=== PATIENT | female | born 1965 | race Caucasian/White ===

== ENCOUNTER 2016-06-28 14:50 | Emergency (ER) | payer MEDICAID ==
[~2016-06-28] VITALS: Ht 162.6 cm; Wt 49.0 kg
--- NOTE | 2016-06-28 14:55 | NUR ---
Pt bib , patient is methadone withdrawal. Placed on monitor. vss. awaiting md order
[2016-06-28] MEDS ORDERED: HYDROMORPHONE 1 MG/1 ML DISP.SYRIN ONE ×2 (15:11→15:38)
[2016-06-28] MEDS ORDERED: IV SET PRIMARY PUMP SET 1 EA INFUS.SET MC ONE (15:11)
[2016-06-28] MEDS ORDERED: ONDANSETRON HCL/PF 4 MG/2 ML VIAL ONE (15:11)
[2016-06-28] MEDS ORDERED: IV NS 0.9% 1,000 ML ONE (15:11)
--- NOTE | 2016-06-28 15:26 | NUR ---
RAC #20 PIV ACCESS. BLOOD SAMPLE COLLECTED SENT TO LAB
[2016-06-28 15:29] LABS: BASOPHILS % (AUTO) 0.4 % (0.0-2.0); EOSINOPHILS % (AUTO) 0.2 % (0.0-6.0); HEMATOCRIT 27 % (33-45); HEMOGLOBIN 7.9 g/dL (11.5-14.8); LYMPHOCYTES # (AUTO) 0.7 /CMM (0.8-4.8); LYMPHOCYTES % (AUTO) 9.2 % (20.0-44.0); MEAN CORPUSCULAR HEMOGLOBIN 19 PG (26.0-33.0); MEAN CORPUSCULAR HGB CONC 29 g/dl (31.0-36.0); MEAN CORPUSCULAR VOLUME 66 fL (82-100); MONOCYTES # (AUTO) 0.2 /CMM (0.1-1.30); MONOCYTES % (AUTO) 2.2 % (2.0-12.0); NEUTROPHILS # (AUTO) 6.6 /CMM (1.8-8.9); PLATELET COUNT (AUTO) 337 /CMM (150-450); RED BLOOD CELL COUNT(AUTO) 4.13 MIL/uL (4.0-5.2); WHITE BLOOD COUNT (AUTO) 7.5 K/uL (4.3-11.0)
[2016-06-28] MEDS ORDERED: IV NS 0.9% 1,000 ML BAG IV ONE (15:30)
[2016-06-28] MEDS ORDERED: ONDANSETRON HCL/PF 4 MG/2 ML VIAL IVP ONE (15:30)
[2016-06-28] MEDS ORDERED: HYDROMORPHONE INJ 2 MG/ML DISP.SYRIN IV ONE (15:30)
[2016-06-28 15:35] LABS: CALCIUM, SERUM 9.2 mg/dL (8.5-10.1); CREATININE 0.7 mg/dL (0.6-1.3); POTASSIUM 3.9 mmol/L (3.5-5.1)
[2016-06-28] MEDS ORDERED: METOCLOPRAMIDE HCL 10 MG/2 ML VIAL ONE (15:38)
[2016-06-28 15:41] LABS: ALBUMIN 4.8 g/dL (3.4-5.0); BILIRUBIN,DIRECT 0.1 mg/dL (0.0-0.2); BILIRUBIN,TOTAL 0.5 mg/dL (0.2-1.0); TOTAL PROTEIN, SERUM 8.3 g/dL (6.4-8.2)
[2016-06-28] MEDS ORDERED: HYDROMORPHONE 1 MG/1 ML DISP.SYRIN IV ONE (16:00)
[2016-06-28] MEDS ORDERED: METOCLOPRAMIDE HCL 10 MG/2 ML VIAL IV ONE (16:00)
[2016-06-28 16:43] VITALS: BP 123/85
--- NOTE | 2016-06-28 16:44 | NUR ---
IV removed. Catheter intact and site benign. Pressure and 4x4 applied to site. No bleeding noted.
--- NOTE | 2016-06-28 16:45 | NUR ---
Patient discharged to home in stable condition. Written and verbal after care instructions given. Patient verbalizes understanding of instruction.
== END 2016-06-28 16:44 | disposition home or self-care (01) ==
LOC: ER 14:52
DX: R11.2 Nausea with vomiting, unspecified (principal); F32.9 Major depressive disorder, single episode, unspecified; F41.9 Anxiety disorder, unspecified; Z88.0 Allergy status to penicillin
CPT/HCPCS: 36415; 80048; 80076; 83690; 85025; 96361; 96374; 96375; 99284; A4606; J1170 ×2; J2405; J2765; J7030; Z7610

== ENCOUNTER 2016-12-09 15:00 | Emergency (ER) | payer MEDICAID ==
[~2016-12-09] VITALS: Ht 162.6 cm; Wt 44.5 kg
[2016-12-09 15:00] VITALS: BP 118/86
--- NOTE | 2016-12-09 16:34 | NUR ---
ear flush - done left ear by EMT
--- NOTE | 2016-12-09 16:34 | NUR ---
Patient discharged to home in stable condition. Written and verbal after care instructions given. Patient verbalizes understanding of instruction.
== END 2016-12-09 16:37 | disposition home or self-care (01) ==
LOC: ER 15:03
DX: H61.21 Impacted cerumen, right ear (principal); F41.9 Anxiety disorder, unspecified; F32.9 Major depressive disorder, single episode, unspecified; Z88.0 Allergy status to penicillin
CPT/HCPCS: 69209; 99282; A4606; Z7610

== ENCOUNTER 2018-03-13 05:05 | Emergency (ER) | payer MEDICAID ==
[~2018-03-13] VITALS: Ht 162.6 cm; Wt 54.0 kg
[2018-03-13 05:08] VITALS: BP 120/77
[2018-03-13] MEDS ORDERED: LIDOCAINE VISCOUS 2% UD 15 ML UDC MM ONE (05:30)
[2018-03-13] MEDS ORDERED: LIDOCAINE VISCOUS 2% UD 15 ML UDC ONE (05:33)
== END 2018-03-13 05:38 | disposition home or self-care (01) ==
LOC: ER 05:11
DX: J04.0 Acute laryngitis (principal); F41.9 Anxiety disorder, unspecified; F32.9 Major depressive disorder, single episode, unspecified; Z88.0 Allergy status to penicillin
CPT/HCPCS: 99283; A4606; Z7610

== ENCOUNTER 2018-05-07 16:36 | Emergency (ER) | payer MEDICAID ==
[~2018-05-07] VITALS: Ht 165.1 cm; Wt 59.0 kg
[2018-05-07] MEDS ORDERED: TRAZODONE TAB 50MG (16:45)
[2018-05-07] MEDS ORDERED: OXYCOD/APAP TAB 5-325MG (16:45)
[2018-05-07] MEDS ORDERED: ALPRAZOLAM TAB 1MG (16:45)
--- NOTE | 2018-05-07 16:54 | NUR ---
PT BIB C/O Abdominal pain and whole body pain s/p unable to refill perscription, PT IS AAOX4, NOT IN RESPIRATORY DISTRESS, V/S STABLE, KEPT RESTED AND COMFORTABLE.
--- NOTE | 2018-05-07 16:59 | NUR ---
SEEN AND EXAMINED BY TREVOR RESENDIZ
[2018-05-07] MEDS ORDERED: HYDROMORPHONE INJ 0.5 MG/0.5 ML SYRINGE IV ONE (17:00)
[2018-05-07] MEDS ORDERED: IV NS 0.9% 1,000 ML BAG IV ONE (17:00)
[2018-05-07] MEDS ORDERED: ONDANSETRON HCL/PF 4 MG/2 ML VIAL IV ONE ×2 (17:00→18:30)
--- NOTE | 2018-05-07 17:00 | NUR ---
IV LINE ESTABLISHED, LABS DRAWNED AND SENT TO LAB.
[2018-05-07] MEDS ORDERED: HYDROMORPHONE 1 MG/1 ML DISP.SYRIN ONE ×2 (17:09→18:07)
[2018-05-07] MEDS ORDERED: ONDANSETRON HCL/PF 4 MG/2 ML VIAL ONE ×2 (17:09→18:07)
[2018-05-07 17:10] LABS: BASOPHILS % (AUTO) 0.5 % (0.0-2.0); EOSINOPHILS % (AUTO) 0.2 % (0.0-6.0); HEMATOCRIT 41 % (33-45); HEMOGLOBIN 13.5 g/dL (11.5-14.8); LYMPHOCYTES # (AUTO) 0.8 /CMM (0.8-4.8); LYMPHOCYTES % (AUTO) 15.1 % (20.0-44.0); MEAN CORPUSCULAR HGB CONC 33 g/dl (31.0-36.0); MEAN CORPUSCULAR VOLUME 89 fL (82-100); MONOCYTES # (AUTO) 0.1 /CMM (0.1-1.30); MONOCYTES % (AUTO) 2.7 % (2.0-12.0); NEUTROPHILS % (AUTO) 81.5 % (43.0-81.0); PLATELET COUNT (AUTO) 339 /CMM (150-450); RED BLOOD CELL COUNT(AUTO) 4.63 MIL/uL (4.0-5.2)
[2018-05-07 17:21] LABS: CALCIUM, SERUM 9.6 mg/dL (8.5-10.1); CREATININE 0.8 mg/dL (0.6-1.3)
[2018-05-07 18:13] VITALS: BP 129/91
[2018-05-07] MEDS ORDERED: HYDROMORPHONE 1 MG/1 ML DISP.SYRIN IV ONE (18:30)
[2018-05-07] MEDS ORDERED: ALPR1TAB7 PO (18:40)
[2018-05-07] MEDS ORDERED: OXYC-162 PO (18:40)
[2018-05-07] MEDS ORDERED: ACYC400T PO (18:40)
[2018-05-07] MEDS ORDERED: TRAZ-213 PO (18:40)
[2018-05-07] MEDS ORDERED: PROP10TA68 PO (18:40)
[2018-05-07] MEDS ORDERED: TIZA4TAB4 PO (18:45)
--- NOTE | 2018-05-07 19:25 | NUR ---
REPORT GIVEN TO MARIFER ATKINSON FOR [facility].
--- NOTE | 2018-05-07 19:26 | NUR ---
REC'D FROM MARIFER ANDRADE FOR [facility]
[2018-05-07] MEDS ORDERED: KETOROLAC TROMETHAMINE INJ 30 MG/ML VIAL ONE (19:44)
[2018-05-07] MEDS ORDERED: diphenhydrAMINE HCL 50 MG/ML VIAL ONE (19:45)
[2018-05-07] MEDS ORDERED: METOCLOPRAMIDE HCL 10 MG/2 ML VIAL ONE (19:45)
[2018-05-07] MEDS ORDERED: METOCLOPRAMIDE HCL 10 MG/2 ML VIAL IV ONE (20:00)
[2018-05-07] MEDS ORDERED: KETOROLAC TROMETHAMINE INJ 30 MG/ML VIAL IV ONE (20:00)
[2018-05-07] MEDS ORDERED: IV NS 0.9% 250 ML BAG IV ONE (20:00)
[2018-05-07] MEDS ORDERED: diphenhydrAMINE HCL 50 MG/ML VIAL IV ONE (20:00)
--- NOTE | 2018-05-07 21:04 | NUR ---
DPatient discharged to home in stable condition. Written and verbal after care instructions given. Patient verbalizes understanding of instruction. IV removed. Catheter intact and site benign. Pressure and 4x4 applied to site. No bleeding noted.
== END 2018-05-07 21:05 | disposition home or self-care (01) ==
LOC: ER 16:39
DX: M79.605 Pain in left leg (principal); M79.604 Pain in right leg; G61.0 Guillain-Barre syndrome; G89.29 Other chronic pain; R11.2 Nausea with vomiting, unspecified; F41.9 Anxiety disorder, unspecified; F32.9 Major depressive disorder, single episode, unspecified; F10.10 Alcohol abuse, uncomplicated; Y90.9 Presence of alcohol in blood, level not specified; Z88.0 Allergy status to penicillin
CPT/HCPCS: 36415; 80048; 85025; 87081; 96361; 96374; 96375; 96376; 99283; A4606; J1170 ×2; J1200; J1885; J2405 ×2; J2765; J7030; J7050

== ENCOUNTER 2018-10-09 21:05 | Emergency (ER) | payer MEDICAID ==
[~2018-10-09] VITALS: Ht 162.6 cm; Wt 49.4 kg
[~2018-10-09 21:05] MED LIST: ACYC400T PO; ALPR1TAB7 PO; OXYC-162 PO; PROP10TA68 PO; TIZA4TAB5 PO; TRAZ-252 PO
--- NOTE | 2018-10-09 21:24 | NUR ---
RYANN C/O RLQ ABD PAIN X 3 HOURS. DENIES VOMITING/DIARRHEA. PATIENT ALSO C/O NAUSEA. STATES PAIN 10/10 AND SHARP. NO OTHER COMPLAINTS AT THIS TIME, NO ACUTE DISTRESS NOTED. HAS NOT HAD SIMILAR SYMPTOMS IN THE PAST. PLACED IN GOWN, ON MONITOR, AND READY FOR EVAL.
[2018-10-09] MEDS ORDERED: ONDANSETRON HCL/PF 4 MG/2 ML VIAL ONE ×2 (21:44→22:48)
[2018-10-09] MEDS ORDERED: MORPHINE SULFATE INJ 4 MG/ML DISP.SYRIN ONE (21:45)
[2018-10-09 21:56] LABS: BASOPHILS % (AUTO) 0.7 % (0.0-2.0); EOSINOPHILS % (AUTO) 3.8 % (0.0-6.0); HEMATOCRIT 39 % (33-45); LYMPHOCYTES # (AUTO) 1.7 /CMM (0.8-4.8); LYMPHOCYTES % (AUTO) 26.9 % (20.0-44.0); MEAN CORPUSCULAR HGB CONC 34 g/dl (31.0-36.0); MEAN CORPUSCULAR VOLUME 97 fL (82-100); MONOCYTES # (AUTO) 0.4 /CMM (0.1-1.30); MONOCYTES % (AUTO) 6.5 % (2.0-12.0); NEUTROPHILS % (AUTO) 62.1 % (43.0-81.0); PLATELET COUNT (AUTO) 234 /CMM (150-450); RED BLOOD CELL COUNT(AUTO) 4.03 MIL/uL (4.0-5.2); WHITE BLOOD COUNT (AUTO) 6.5 K/uL (4.3-11.0)
[2018-10-09] MEDS ORDERED: ONDANSETRON HCL/PF 4 MG/2 ML VIAL IVP ONE (22:00)
[2018-10-09] MEDS ORDERED: MORPHINE SULFATE INJ 2 MG/ML DISP.SYRIN IV ONE (22:00)
[2018-10-09] MEDS ORDERED: IV NS 0.9% 1,000 ML BAG IV ONE (22:00)
--- NOTE | 2018-10-09 22:00 | NUR ---
PT TAKEN TO RADIOLOGY VIA [facility]
--- NOTE | 2018-10-09 22:00 | NUR ---
IV ACCESS OBTAINED, BLOOD DRAWN, URINE COLLECTED AND SENT TO STAT LAB
[2018-10-09 22:05] LABS: CALCIUM, SERUM 8.6 mg/dL (8.5-10.1); CREATININE 0.6 mg/dL (0.6-1.3); POTASSIUM 3.9 mmol/L (3.5-5.1)
[2018-10-09 22:12] LABS: ALBUMIN 3.5 g/dL (3.4-5.0); BILIRUBIN,DIRECT 0.1 mg/dL (0.0-0.2); BILIRUBIN,TOTAL 0.3 mg/dL (0.2-1.0); TOTAL PROTEIN, SERUM 6.9 g/dL (6.4-8.2)
[2018-10-09 22:14] LABS: APPEARANCE,URINE Clear (CLEAR); BILIRUBIN,URINE SMALL (NEGATIVE); BLOOD, URINE Trace-intact Ery/uL (NEGATIVE); COLOR,URINE Yellow (YELLOW); KETONES,URINE Negative (NEGATIVE); LEUKOCYTE ESTERASE ,URINE Negative (NEGATIVE); NITRITE, URINE Negative (NEGATIVE); PROTEIN,URINE Negative (NEGATIVE); UGLUCOSE Negative (NEGATIVE); UROBILINOGEN,URINE 0.2 EU/dL (0.2)
[2018-10-09] MEDS ORDERED: HYDROMORPHONE INJ 0.5 MG/0.5 ML SYRINGE IV ONE (22:30)
[2018-10-09] MEDS ORDERED: ONDANSETRON HCL/PF - ER 4 MG/2 ML VIAL IV ONE (22:30)
--- NOTE | 2018-10-09 22:35 | NUR ---
PT STATES NO RELIEF FROM PAIN MED. NOTIFIED
[2018-10-09 22:47] LABS: BACTERIA,URINE Rare /HPF (None Seen); SQUAMOUS EPITHELIAL CELL,UR Few /HPF (None Seen); WBC,URINE 0-2 /HPF (0-3)
[2018-10-09] MEDS ORDERED: HYDROMORPHONE 1 MG/1 ML DISP.SYRIN ONE (22:49)
--- NOTE | 2018-10-09 23:09 | NUR ---
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
--- NOTE | 2018-10-09 23:36 | NUR ---
MAIL [employer] SUPERVISOR AT BEDSIDE
--- NOTE | 2018-10-09 23:42 | NUR ---
DR. LIZZETTE DE LEÓN
--- NOTE | 2018-10-09 23:45 | NUR ---
DR. MARTINEZ ON THE PHONE WITH DR. CROCKER
[2018-10-10 00:01] LABS: BASOPHILS % (AUTO) 0.4 % (0.0-2.0); EOSINOPHILS % (AUTO) 1.7 % (0.0-6.0); HEMATOCRIT 39 % (33-45); HEMOGLOBIN 13.2 g/dL (11.5-14.8); LYMPHOCYTES % (AUTO) 18.8 % (20.0-44.0); MEAN CORPUSCULAR HGB CONC 34 g/dl (31.0-36.0); MEAN CORPUSCULAR VOLUME 98 fL (82-100); MONOCYTES # (AUTO) 0.6 /CMM (0.1-1.30); MONOCYTES % (AUTO) 5.4 % (2.0-12.0); NEUTROPHILS # (AUTO) 7.8 /CMM (1.8-8.9); NEUTROPHILS % (AUTO) 73.7 % (43.0-81.0); PLATELET COUNT (AUTO) 244 /CMM (150-450); RED BLOOD CELL COUNT(AUTO) 4.03 MIL/uL (4.0-5.2); WHITE BLOOD COUNT (AUTO) 10.6 K/uL (4.3-11.0)
--- NOTE | 2018-10-10 00:36 | NUR ---
[facility] CALLED FOR ULTRASOUND READ
--- NOTE | 2018-10-10 01:15 | NUR ---
IV removed. Catheter intact and site benign. Pressure and 4x4 applied to site. No bleeding noted. Patient discharged to home in stable condition. Written and verbal after care instructions given. Patient verbalizes understanding of instruction. ambulatory with a steady gait noted. pt aaox4 no acute distress noted, resp even and unlabored. advice pt not to drive or operate any machinery due to pt was given narcotic medicine. pt verbalize understanding. Pt S/O at bedside to take pt home.
[2018-10-10 01:16] VITALS: BP 137/72
== END 2018-10-10 01:17 | disposition home or self-care (01) ==
LOC: ER 21:08
DX: R10.31 Right lower quadrant pain (principal); M79.81 Nontraumatic hematoma of soft tissue; D25.9 Leiomyoma of uterus, unspecified; G61.0 Guillain-Barre syndrome; F41.9 Anxiety disorder, unspecified; F32.9 Major depressive disorder, single episode, unspecified; F10.10 Alcohol abuse, uncomplicated; Y90.9 Presence of alcohol in blood, level not specified; Z90.49 Acquired absence of other specified parts of digestive tract; Z88.0 Allergy status to penicillin
CPT/HCPCS: 36415; 74176; 76856; 80048; 80076; 81001; 83690; 84703; 85025 ×2; 96374; 96375; 96376; 99284; J1170; J2270; J2405 ×2; J7030; 81000-TC

== ENCOUNTER 2019-12-18 16:51 | Emergency (ER) | payer MEDICAID ==
[~2019-12-18] VITALS: Ht 162.6 cm; Wt 53.1 kg
--- NOTE | 2019-12-18 17:03 | NUR ---
BIB SELF WITH C/O RIGHT EYE PAIN OF 8/10. NOTED WITH REDNESS ON BOTH EYES. WITH WHITISH DISCHARGE SINCE THIS MORNING. PT STATES "IT FEELS LIKE THERE IS SOMETHING IN MY EYES". ALL NEEDS ATTENDED. AWAITING FOR MD DELACRUZ
[2019-12-18] MEDS ORDERED: FLUORESCEIN SODIUM OPHTH 1 EA STRIP ONE (17:19)
[2019-12-18] MEDS ORDERED: FLUORESCEIN SODIUM OPHTH 1 EA STRIP OP ONE (17:30)
[2019-12-18] MEDS ORDERED: TETRAcaine 5 ML BOTTLE EACHEYE ONE (17:30)
--- NOTE | 2019-12-18 17:32 | NUR ---
eyecare provided by
[2019-12-18 17:42] VITALS: BP 127/79
== END 2019-12-18 17:43 | disposition home or self-care (01) ==
LOC: ER 16:58
DX: S05.01XA Injury of conjunctiva and corneal abrasion without foreign body, right eye, initial encounter (principal); G61.0 Guillain-Barre syndrome; F41.9 Anxiety disorder, unspecified; F32.9 Major depressive disorder, single episode, unspecified; Z88.0 Allergy status to penicillin; Z79.899 Other long term (current) drug therapy; X58.XXXA Exposure to other specified factors, initial encounter; Y93.89 Activity, other specified; Y92.89 Other specified places as the place of occurrence of the external cause; Y99.8 Other external cause status

== ENCOUNTER 2020-02-11 16:29 | Emergency (ER) | payer MEDICAID ==
[2020-02-11 19:06] LABS: BILIRUBIN,URINE Negative (NEGATIVE); BLOOD, URINE Trace-intact Ery/uL (NEGATIVE); COLOR,URINE YELLOW (YELLOW); LEUKOCYTE ESTERASE ,URINE Negative (NEGATIVE); NITRITE, URINE Negative (NEGATIVE); PROTEIN,URINE Negative (NEGATIVE); UGLUCOSE Negative (NEGATIVE)
[2020-02-11 19:19] LABS: BACTERIA,URINE Few /HPF (None Seen); SQUAMOUS EPITHELIAL CELL,UR Few /HPF (None Seen); WBC,URINE 0-2 /HPF (0-3)
--- NOTE | 2020-02-11 19:30 | NUR ---
Patient discharged to home in stable condition. Written and verbal after care instructions given. Patient verbalizes understanding of instruction.
== END 2020-02-11 20:52 | disposition home or self-care (01) ==
LOC: ER 16:32
DX: R10.2 Pelvic and perineal pain (principal); N95.2 Postmenopausal atrophic vaginitis; Z88.0 Allergy status to penicillin; Z79.899 Other long term (current) drug therapy
CPT/HCPCS: 76856-TC; 81001